=== PATIENT | male | born 1965 | race Caucasian/White ===

== ENCOUNTER 2018-10-04 11:50 | Emergency (ER) | payer BC ==
[~2018-10-04] VITALS: Ht 198.1 cm; Wt 154.5 kg
[2018-10-04 12:00] VITALS: TEMP 97.5
[2018-10-04] MEDS ORDERED: SYNTHROID0.1 MG/TAB PO (12:04)
[2018-10-04] MEDS ORDERED: HYZAAR 25 MG-101 TAB PO (12:05)
[2018-10-04] MEDS ORDERED: ASPIRIN 32325 MG/TAB PO (12:05)
[2018-10-04] MEDS ORDERED: LIPITOR20 MG PO (12:05)
[2018-10-04 12:46] LABS: BASO # 0.1 (0.0-0.2); BASO % 0.9 % (0.0-2.0); EOS # 0.1 (0.0-0.7); EOS % 1.6 % (0-4.0); GRAN # 3.2 (1.4-6.5); GRAN % 55.7 % (42.2-75.2); HEMATOCRIT 45.5 % (42.0-52.0); HEMOGLOBIN 15.3 g/dl (13.5-18.0); LYMPH # 1.9 (1.2-3.4); LYMPH % 33.6 % (20.0-51.0); MEAN CELL VOLUME 87 fl (80.0-100.0); MEAN CORPUSCULAR HEMOGLOBIN 29 pg (27.0-31.0); MEAN CORPUSCULAR HGB CONC 34 g/dl (33.0-37.0); MEAN PLATELET VOLUME 10.2 fl (7.4-10.4); MONO # 0.4 (0.1-0.6); MONO % 7.7 % (1.7-9.3); PLATELET COUNT 249 K/mm3 (130-400); RED BLOOD COUNT 5.23 M/mm3 (4.20-5.60); REDCELL DISTRIBUTION WIDTH-CV 13.6 % (11.5-14.5)
[2018-10-04 13:13] LABS: ALANINE AMINOTRANSFERASE 77 U/L (21-72); ALBUMIN 4.4 gm/dL (3.5-5.0); ALKALINE PHOSPHATASE 61 U/L (50-136); ANION GAP 7 mmol/L (7-16); AST,SGOT 66 U/L (15-37); BILIRUBIN,TOTAL 0.4 mg/dL (0.0-1.0); BLOOD UREA NITROGEN 18 mg/dL (9-20); CALCIUM 9.3 mg/dL (8.4-10.2); CARBON DIOXIDE 28 mmol/L (22-30); CHLORIDE 104 mmol/L (98-107); CREATININE, serum 0.89 mg/dL (0.66-1.25); GLUCOSE 113 mg/dL (74-106); POTASSIUM 3.8 mmol/L (3.4-5.0); SODIUM 138 mmol/L (137-145); TOTAL PROTEIN 7.7 gm/dL (6.4-8.2)
[2018-10-04 13:25] LABS: TROPONIN-I < 0.012 ng/mL (0.000-0.034)
[2018-10-04] MEDS ORDERED: TOPROL XL 25MG25 MG PO (15:30)
[2018-10-04 15:40] VITALS: BP 143/98; PULSE 87
== END 2018-10-04 15:45 | disposition home or self-care (01) ==
LOC: COL.ER 11:50
PROVIDERS: Emergency Medicine
DX: I47.1 Supraventricular tachycardia (principal); I10 Essential (primary) hypertension; E78.00 Pure hypercholesterolemia, unspecified; Z79.82 Long term (current) use of aspirin
CPT/HCPCS: J7030